=== PATIENT | female | born 1960 | race Asian ===

== ENCOUNTER 2017-06-05 11:13 | Day surgery (SDC) | payer BC ==
[2017-06-05] MEDS ORDERED: PROPOFOL 20 ML (13:23)
== END 2017-06-05 14:50 | disposition home or self-care (01) ==
LOC: GIL 11:13
DX: Z12.11 Encounter for screening for malignant neoplasm of colon (principal); K64.8 Other hemorrhoids
CPT/HCPCS: 45378

== ENCOUNTER 2018-11-27 10:59 | Day surgery (SDC) | payer BC ==
[2018-11-27] MEDS ORDERED: PROPOFOL 20 ML (13:25)
== END 2018-11-27 15:01 | disposition home or self-care (01) ==
LOC: GIL 10:59
DX: K64.8 Other hemorrhoids (principal); K31.9 Disease of stomach and duodenum, unspecified; K29.50 Unspecified chronic gastritis without bleeding
CPT/HCPCS: 43239; 88305; 88312